=== PATIENT | female | born 1950 | race Caucasian/White ===

== ENCOUNTER 2020-04-01 05:51 | Outpatient (CLI) | payer MEDICARE, SELFPAY ==
[2020-04-01 18:34] LABS: SARS-CoV-2 RNA PCR Negative
== END 2020-04-01 05:52 | disposition home or self-care (01) ==
LOC: ANHCOVIDDT 05:53
PROVIDERS: Visit Provider Internal Medicine Gastroenterology
DX: Z01.818 Encounter for other preprocedural examination (principal); Z11.59 Encounter for screening for other viral diseases; Z12.11 Encounter for screening for malignant neoplasm of colon
CPT/HCPCS: 87635; C9803; U0003

== ENCOUNTER 2020-04-03 01:16 | Day surgery (SDC) | payer MEDICARE, SELFPAY ==
[2020-03-31 16:31] VITALS: BMI 22.6
[2020-04-03 07:06] VITALS: BP 156/91; PULSE 76; RESP 16; TEMP 36.7; O2SAT 98
[2020-04-03] MEDS: LACTATED RINGERS 1,000 ML 150 ML IV CONT (07:09)
--- NOTE | 2020-04-03 07:18 | PM.HPGS ---
History of Present Illness History of Present Illness Consent: Risks, benefits, and alternatives have been discussed and questions answered. Patient agrees to proceed with procedure. Chief complaint: Fam Hx Colon Ca Narrative: Maritza Tamayo is a 69 year old W female referred for screening colonoscopy secondary to a family history of colon cancer mother. Last colonoscopy was 6 years ago. In addition to this patient has had a couple episodes of diverticulitis. Meds Home Medications and Allergies Home Medications Medication Instructions Recorded Confirmed Type cholecalciferol (vitamin D3) 10 mcg PO DAILY 03/31/20 03/31/20 History [Vitamin D3] coQ10 (ubiquinol) 200 mg PO DAILY 03/31/20 03/31/20 History lactobacillus combination no.4 3,000 mmu cells PO DAILY 03/31/20 03/31/20 History [Probiotic] magnesium oxide 84.5 mg PO DAILY 03/31/20 03/31/20 History multivitamin 1 cap PO DAILY 03/31/20 03/31/20 History omega 4-urv-hzg-fish oil [Fish Oil] 1 cap PO DAILY 03/31/20 03/31/20 History valsartan 160 mg PO DAILY 03/31/20 04/03/20 History Allergies Allergy/AdvReac Type Severity Reaction Status Date / Time levofloxacin [From Levaquin] Allergy Intermediate dobson Verified 04/03/20 07:05 depression Vital Signs Vital Signs - 24 hr 04/03/20 07:06 Temperature 36.7 C Pulse Rate 76 Respiratory Rate 16 Blood Pressure 156/91 H Pulse Oximetry 98 Exam Const: Orientation/consciousness: patient oriented x3 Resp: Auscultation: clear to auscultation bilaterally Cardio: Rate: regular rate Rhythm: regular rhythm Heart sounds: no murmurs GI: GI Palp: Yes Soft to palpation, No Tenderness to palpation present (GI), Yes No hepatosplenomegaly present and No Palpable mass present Auscultation: normal bowel sounds Neuro: General: patient oriented x3 and no focal motor deficits Extrem: General: no pedal edema Assessment and Plan Additional Plan Screening colonoscopy secondary family history of colon cancer mother had a history of diverticulitis
--- NOTE | 2020-04-03 07:27 | WPDANESEPPF ---
Anes - Initial Pre Proc Eval Procedure: Operation Date: 04/03/20 07:30 Proposed Procedures p Screening Colonoscopy - Harry Mccrary MD Date/Time: 04/03/20 07:27 Surgeon: Harry Mccrary MD Pre Op Diagnosis: Fam Hx Colon Ca Patient Data Age: 69 Gender: F Height: 5 ft 4 in Weight: 62.8 kg Last Vital Signs Temp 36.7 C 04/03/20 07:06 Pulse 76 04/03/20 07:06 Resp 16 04/03/20 07:06 BP 156/91 H 04/03/20 07:06 Pulse Ox 98 04/03/20 07:06 Allergies Allergy/AdvReac Type Severity Reaction Status Date / Time levofloxacin [From Levaquin] Allergy Intermediate dobson Verified 04/03/20 07:05 depression Home Medications Medication Instructions Recorded Confirmed Type cholecalciferol (vitamin D3) 10 mcg PO DAILY 03/31/20 03/31/20 History [Vitamin D3] coQ10 (ubiquinol) 200 mg PO DAILY 03/31/20 03/31/20 History lactobacillus combination no.4 3,000 mmu cells PO DAILY 03/31/20 03/31/20 History [Probiotic] magnesium oxide 84.5 mg PO DAILY 03/31/20 03/31/20 History multivitamin 1 cap PO DAILY 03/31/20 03/31/20 History omega 9-dun-rlt-fish oil [Fish Oil] 1 cap PO DAILY 03/31/20 03/31/20 History valsartan 160 mg PO DAILY 03/31/20 04/03/20 History Patient hx anesthesia problems: none Family hx anesthesia problems: none [facility] Past Medical History Medical History (Updated 04/03/20 @ 07:27 by Jeffery Cota MD) HTN (hypertension) Anes - Eval Final PreProcedure Day of Procedure 04/03/20 07:27 Patient weight: normal Heart: regular rate and rhythm Lungs: clear to auscultation Airway: Mallampati scale class II Neurological: alert and oriented Last oral intake: >/= 8 hours ASA classification: II Emergent: no Anesthesia type and monitoring: general GIVS and standard monitoring Informed Consent: The patient's anesthetic plan and its attendant risks and benefits were discussed with the patient/family/POA. Questions were solicited and answers provided to the satisfaction of the patient/family/POA.
[2020-04-03] MEDS: SIMETHICONE ORAL SUSPENSION 20 MG/0.3 ML 30 ML BOTTLE 0.6 ML IRRIGATION (07:45)
[2020-04-03 08:05] VITALS: BP 103/55; PULSE 73; RESP 16; O2SAT 98
[2020-04-03 08:15] VITALS: BP 104/59; PULSE 78; RESP 16; O2SAT 98
[2020-04-03 08:25] VITALS: BP 135/72; PULSE 70; RESP 16; O2SAT 98
== END 2020-04-03 09:13 | disposition home or self-care (01) ==
PROVIDERS: Visit Provider Internal Medicine Gastroenterology
PROC: 0DJD8ZZ Inspection of Lower Intestinal Tract, Via Natural or Artificial Opening Endoscopic (ICD-10-PCS; CPT 45378; principal; 2020-04-03 07:30)
DX: Z12.11 Encounter for screening for malignant neoplasm of colon (principal); D12.3 Benign neoplasm of transverse colon; K64.1 Second degree hemorrhoids; K64.4 Residual hemorrhoidal skin tags; K57.30 Diverticulosis of large intestine without perforation or abscess without bleeding; Z80.0 Family history of malignant neoplasm of digestive organs; I10 Essential (primary) hypertension
CPT/HCPCS: 45380; 45385; 88305; J2704; J7120